=== PATIENT | male | born 1995 | race Caucasian/White ===

== ENCOUNTER 2017-03-31 14:02 | Emergency (ER) | payer BC ==
[2017-03-31 15:01] VITALS: BP 125/70
--- NOTE | 2017-03-31 15:32 | UC ---
General HPI - HPI Summary HPI Summary: 1. rash on feet started after a day of skiing and his feet were sweaty all day 2. sinus congestion, sore throat in the morning, pressure around the eyes and feverish. - History of Current Complaint Chief Complaint: UCGeneralIllness Stated Complaint: COUGH, RASH ON FEET Time Seen by Provider: 03/31/17 15:18 Hx Obtained From: Patient Onset/Duration: Sudden Onset, Lasting Days Timing: Constant Onset Severity: Moderate Current Severity: Moderate Associated Signs & Symptoms: Positive: Cough, Fever, Headache - Allergy/Home Medications Allergies/Adverse Reactions: Allergies Allergy/AdvReac Type Severity Reaction Status Date / Time No Known Allergies Allergy Verified 03/31/17 15:02 PMH/Surg Hx/FS Hx/Imm Hx Previously Healthy: Yes - Surgical History Surgical History: None - Family History Known Family History: Negative: Cardiac Disease, Hypertension - Social History Alcohol Use: Weekly Substance Use Type: Marijuana Substance Use Comment - Amount & Last Used: occ usage Smoking Status (MU): Never Smoked Tobacco - Immunization History Vaccination Up to Date: Yes Review of Systems Constitutional: Fever, Chills Skin: Rash Eyes: Negative ENT: Sore Throat, Ear Ache, Nasal Discharge, Sinus Congestion, Sinus Pain/ Tenderness Respiratory: Cough Cardiovascular: Negative Gastrointestinal: Negative Genitourinary: Negative Motor: Negative Neurovascular: Negative Neurological: Headache Is Patient Immunocompromised?: No All Other Systems Reviewed And Are Negative: Yes Physical Exam Triage Information Reviewed: Yes Appearance: Well-Nourished, Ill-Appearing, Pain Distress Vital Signs: Initial Vital Signs Temp 98.6 F 03/31/17 14:51 Pulse 67 03/31/17 14:51 Resp 14 03/31/17 14:51 BP 125/70 03/31/17 14:51 Pulse Ox 97 03/31/17 14:51 Vital Signs Reviewed: Yes Eye Exam: Normal Eyes: Positive: Conjunctiva Inflamed ENT: Positive: Pharyngeal erythema, Nasal congestion, Nasal drainage, TM bulging , Sinus tenderness Dental Exam: Normal Neck exam: Normal Neck: Positive: Supple, Nontender, No Lymphadenopathy Respiratory Exam: Normal Respiratory: Positive: Chest non-tender, Lungs clear, Normal breath sounds Cardiovascular Exam: Normal Cardiovascular: Positive: RRR, No Murmur, Pulses Normal Abdominal Exam: Normal Abdomen Description: Positive: Nontender, No Organomegaly, Soft Bowel Sounds: Positive: Present Musculoskeletal Exam: Normal Musculoskeletal: Positive: Strength Intact, ROM Intact, No Edema Neurological Exam: Normal Neurological: Positive: Alert Psychological Exam: Normal Skin: Positive: rashes - on bilateral feet, Course/Dx - Course Course Of Treatment: hx obtained, exam performed ,meds reviewed, treated for sinusitis and athletes foot - Differential Dx - Multi-Symptom Provider Diagnoses: tinea pedis, bilateral. sinusitis Discharge - Discharge Plan Condition: Stable Disposition: HOME Prescriptions: Amoxicillin PO (*) [Amoxicillin 875 MG (*)] 875 mg PO BID #20 tab predniSONE TAB* [Deltasone TAB*] 40 mg PO DAILY #14 tab Patient Education Materials: Athlete's Foot (ED), Sinusitis (ED) Referrals: No Primary Care Phys,NOPCP [Primary Care Provider] - Additional Instructions: 1. take the medication as prescribed. 2. tylenol or ibuprofen for pain and fever. 3. Soak your feet in 1 part water 1 part white vinegar twice a day. and then lather with coconut oil and put on socks twice a day as well, 4. you can use over the counter antifungal cream but recommend the soaks until the skin becomes less inflammed.
== END 2017-03-31 15:38 | disposition home or self-care (01) ==
LOC: UCCORT 14:02
DX: B35.3 Tinea pedis (principal); J32.9 Chronic sinusitis, unspecified; F12.90 Cannabis use, unspecified, uncomplicated
CPT/HCPCS: 99202; G0463